=== PATIENT | female | born 1995 | race Caucasian/White ===

== ENCOUNTER 2017-10-11 11:28 | Emergency (ER) | payer OTHER ==
[~2017-10-11] VITALS: Ht 162.6 cm; Wt 80.3 kg
[~2017-10-11 11:28] MED LIST: QUASENSE 0.15-1 EACH PO; SEROQUEL200 M1 PO; ZOFRAN4 M2 PO
[2017-10-11 13:35] LABS: ABSOLUTE BASOPHIL COUNT 0 /CUMM (0.0-0.2); ABSOLUTE EOSINOPHIL COUNT 0.4 /CUMM (0.0-0.7); ABSOLUTE GRANULOCYTE CT 10.1 /CUMM (1.4-6.5); ABSOLUTE LYMPH COUNT 1.5 /CUMM (1.2-3.4); BASOPHIL % 0.4 % (0.0-2.0); GRANULOCYTE % 77.4 % (42.2-75.2); HEMATOCRIT 46.1 % (37-47); MEAN CORPUSCULAR HGB 33.1 PG (27.0-31.0); MEAN CORPUSCULAR HGB CONC 33.5 G/DL (33.0-37.0); MEAN CORPUSCULAR VOLUME 98.8 FL (81.0-99.0); MEAN PLATELET VOLUME 7.8 FL (7.4-10.4); PLATELET COUNT 336 /CUMM (130-400); RBC DISTRIBUTION WIDTH 13.4 % (11.5-14.5); RED BLOOD CELL CT 4.66 /CUMM (4.20-5.40); WHITE BLOOD CELL COUNT 13.1 /CUMM (4.8-10.8)
[2017-10-11 13:53] LABS: PT 11.4 SEC (9.4-12.5); PTT 35 SEC (25-37)
--- NOTE | 2017-10-11 14:19 | ED GENERAL ADULT ---
History of Present Illness General Chief Complaint: General Adult Stated Complaint: SWOLLEN GLANDS/NECK PAIN/RASH Source: patient, family Exam Limitations: no limitations Vital Signs & Intake/Output Vital Signs & Intake/Output Vital Signs Date Time Temp Pulse Resp B/P B/P Pulse O2 O2 Flow FiO2 Mean Ox Delivery Rate 10/11 1615 98.3 82 16 136/80 98 Room Air 10/11 1415 98.2 88 18 133/93 98 Room Air 10/11 1132 97.7 150 18 146/122 98 Room Air Allergies Coded Allergies: fluoxetine (From [employer]) (Intermediate, MANIC 10/11/17) Reconcile Medications Doxycycline Hyclate 100 MG CAPSULE 1 CAP PO BID NECK SWELLING Ibuprofen 800 MG TABLET 1 TAB PO TID PAIN Levonorgestrel-Ethin Estradiol (Quasense 0.15-0.03 MG Tablet) 1 EACH [id number] 1 TAB PO DAILY CONTROL (Reported) Ondansetron HCl (Zofran) 4 MG TABLET 1 TAB PO TID PRN NAUSEA Quetiapine Fumarate (Seroquel) 200 MG TABLET 1 TAB PO QPM MENTAL HEALTH/SLEEP (Reported) Triage Note: 22 YO FEMALE TO TRIAGE STATING "I THINK I HAVE MENINGITIS" STATES SHE STARTED VOMTIING BLOOD ON TUESDAY BUT THAT HAS RESOLVED. STATES STATES SHE HAS A RASH IN SPOTS ON HER BODY. STATES +SWOLLEN GLANDS, STATES +PAIN TO UPPER BACK. AFEBRILE. DENIES SORE THRAOT. Triage Nurses Notes Reviewed? yes Onset: Abrupt Duration: day(s): Timing: multiple episodes today LMP (ages 10-50): date (2 weeks ago) : No Patient currently breastfeeds: No HPI: 22 year old female presents to the ED with multiple complaints she states this occured on Tuesday when she had three episodes within an hour of bloody vomiting that starting as bright red and became dark. She continued to have vomiting throughout the weekend that was green. She states that the light and loud noises makes it worse while closing her eyes and cold compresses makes her feel better. She has been unable to eat or drink since her episodes of vomiting. She endorses nightsweats, chills, general pain, headache, fatigue, cough, and a rash that has spread from her chest to her neck. She denies fevers, sore throat, chest pain, runny nose, recent travel or use of oral contraceptive pills. She reports that primarily while she is here today is due to the fact that her neck feels swollen and painful. It starts up at her upper jawline and wraps around to the anterior aspect of her neck. She feels that it swollen. The rash began yesterday and has spread from her chest to arms. She denies any recent travel. The vomiting has since completely resolved. She denies any black stool or blood in her stool. She has no complaints of abdominal pain. Past History Travel History Traveled to [place] past 21 day No Medical History Any Pertinent Medical History? see below for history Neurological: NONE EENT: NONE Cardiovascular: NONE Respiratory: asthma Gastrointestinal: NONE Hepatic: NONE Renal: NONE Musculoskeletal: fibromyalgia Psychiatric: anxiety, bipolar disease, PTSD Endocrine: NONE Blood Disorders: NONE Cancer(s): NONE POLICY CHECKER/Reproductive: NONE Surgical History Surgical History: Psychosocial History What is your primary language Mexican Tobacco Use: Never used Family History Hx Contributory? No Review of Systems Review of Systems Constitutional: Reports: see HPI. EENTM: Reports: see HPI. Respiratory: Reports: see HPI. Cardiovascular: Reports: no symptoms. GI: Reports: no symptoms. Genitourinary: Reports: no symptoms. Musculoskeletal: Reports: see HPI. Skin: Reports: see HPI. Neurological/Psychological: Reports: no symptoms. Hematologic/Endocrine: Reports: no symptoms. Immunologic/Allergic: Reports: no symptoms. All Other Systems: Reviewed and Negative Physical Exam Physical Exam General Appearance: well developed/nourished, no apparent distress, alert, awake Head: atraumatic Eyes: Bilateral: normal appearance. Ears, Nose, Throat: normal pharynx Neck: lymphadenopathy (R), lymphadenopathy (L), ANTERIOR CERVICAL LYMPHADENOPATHY Respiratory: normal breath sounds, no respiratory distress Cardiovascular: regular rate/rhythm Gastrointestinal: soft, SOME MILD TENDERESS LLQ, NO GAURDING, NO REBOUND TEDNERNESS, NEGATIVE MCBURNEYS POINT Back: normal inspection Extremities: normal inspection, no edema Neurologic/Psych: awake, alert, oriented x 3 Skin: rash, Maculopapular rash on anterior aspect of chest and breasts, located on the upper extremities on the upper arm Core Measures ACS in differential dx? No CVA/TIA Diagnosis: No Sepsis Present: No Sepsis Focused Exam Completed? No Progress Differential Diagnoses I considered the following diagnoses in my evaluation of the patient: Mumps, viral syndrome, lymphoma, HIV, autoimmune disease, lymphadenitis, Plan of Care: Orders Procedure Date/time Status Add-on Test (ER Only) 10/11 1433 Active Add-on Test (ER Only) 10/11 1415 Active LITHIUM 10/11 1323 Complete URINE 10/11 131 Complete URINALYSIS 10/11 131 Complete TROPONIN LEVEL 10/11 131 Complete PARTIAL THROMBOPLASTIN TIME 10/11 131 Complete PROTHROMBIN TIME 10/11 131 Complete MONOSPOT TEST 10/11 131 Complete LACTIC ACID 10/11 131 Complete WESTERGREN SED RATE 10/11 131 Complete D-DIMER 10/11 131 Complete COMPREHENSIVE METABOLIC PANEL 10/11 131 Complete CBC WITHOUT DIFFERENTIAL 10/12 1311 Complete EKG 10/11 1133 Active Laboratory Tests 10/11/17 1612: Lactic Acid Cancelled 10/11/17 1330: Urinalysis LIGHT H, Urine Color ARABELLA, Urine Clarity HAZY H, Urine pH 6.0, Ur Specific [place] 1.025, Urine Protein 30 H, Urine Ketones >=80, Urine Nitrite NEG, Urine Bilirubin POS@ICTO H, Urine Urobilinogen 1.0, Ur Leukocyte Esterase NEG, Ur Microscopic SEDIMENT EXAMINED, Urine RBC 5-10 H, Urine WBC 5-10 H, Ur Epithelial Cells MANY H, Urine Bacteria MANY H, Hyaline Casts RARE H, Urine Mucus MOD H, Urine Hemoglobin TRACE-LYSED, Urine Glucose NEG, Urine Test NEGATIVE 10/11/17 1323: Anion Gap 19 H, Estimated GFR > 60, BUN/Creatinine Ratio 7.8, Glucose 89, Lactic Acid 0.8, Calcium 10.4 H, Total Bilirubin 0.8, AST 22, ALT 28, Alkaline Phosphatase 67, Troponin I < 0.01, Total Protein 8.0, Albumin 4.9, Globulin 3.1, Albumin/Globulin Ratio 1.6, PT 11.4, INR 1.05, APTT 35, D-Dimer High Sensitivty 232, CBC w Diff NO MAN DIFF REQ, RBC 4.66, MCV 98.8, MCH 33.1 H, MCHC 33.5, RDW 13.4, MPV 7.8, Gran % 77.4 H, Lymphocytes % 11.3 L, Monocytes % 7.9, Eosinophils % 3.0, Basophils % 0.4, Absolute Granulocytes 10.1 H, Absolute Lymphocytes 1.5, Absolute Monocytes 1.0 H, Absolute Eosinophils 0.4, Absolute Basophils 0, ESR Westergren 5, [place] 0.9 10/11/17 1312: Infectious Schuyler Titer NEGATIVE Diagnostic Imaging: Viewed by Me: Radiology Read. Discussed w/RAD: Radiology Read. Radiology Impression: PATIENT: CONCEPCIÓN BUSBY PRESENT AGE: 22 PATIENT ACCOUNT NO: [id number] : 93 LOCATION: [facility] ORDERING PHYSICIAN: Abhinav SPAULDING SERVICE DATE: 10/11/17 EXAM TYPE: RAD - XRY-CHEST XRAY, TWO VIEWS EXAMINATION: XR CHEST CLINICAL INFORMATION: Swollen neck glands, assess for any mediastinal lymphadenopathy COMPARISON: None TECHNIQUE: 2 views of the chest were obtained. FINDINGS: The lungs are clear with no focal consolidation. No evidence of pneumothorax, pulmonary edema, or pleural effusions. Cardiac size is within normal limits. No radiographic findings to suggest mediastinal lymphadenopathy. No acute osseous findings are seen. IMPRESSION: No findings to suggest mediastinal lymphadenopathy. No acute pulmonary findings. DICTATED BY: Elkin Parra MD DATE/TIME DICTATED:10/11/171450 MOTEL MAID:MISTI DATE/TIME TRANSCRIBED:10/11/171450 CONFIDENTIAL, DO NOT COPY WITHOUT APPROPRIATE AUTHORIZATION. <Electronically signed in Other Vendor System> SIGNED BY: Elkin Parra MD 10/11/171456 Initial ED EKG: normal sinus rhythm, rate (102), nonspecific ST T wave chg Departure Departure Disposition: HOME OR SELF CARE Condition: Stable Clinical Impression Primary Impression: Rash and nonspecific skin eruption Secondary Impressions: Submandibular lymphadenopathy, Viral syndrome Referrals: Ciarra Liriano MD Patient Has No Primary Care Dr (PCP/Family) Additional Instructions: Take doxycycline and ibuprofen as prescribed. Follow-up with primary care doctor. Return if any concerns worsening symptoms. Please go over all results of today's visit with your primary care doctor. Contact your primary care doctor to let them know you were here in the emergency room. There may be nonspecific findings which may not be related to your visit today here in the emergency room but may require further evaluation and chronic monitoring by your primary care doctor. If you had a laceration today the chance of foreign body always remains. You should follow-up with your primary care doctor for recheck in 3-5 days for a wound check. If you had an x-ray done there is a chance that a fracture could have been missed on initial read and you should follow-up with your primary care doctor for repeat x-rays if symptoms persist. If your blood pressure was elevated here in the emergency room please have rechecked by [place] primary care doctor within the next 48. If you were prescribed a narcotic here in the emergency room or any type of controlled substances you're not allowed to drive while taking this medication or operate any type of heavy machinery. Narcotics can make you feel lightheaded dizziness nausea and can cause constipation. You may need to pharmacy picking technician a stool softener. Thank you for choosing [facility] emergency room. Please return to the emergency room immediately if you have any other concerns worsening of symptoms. Departure Forms: Customer Survey General Discharge Information Prescriptions: Current Visit Scripts Doxycycline Hyclate 1 CAP PO BID #20 CAP Ibuprofen 1 TAB PO TID #30 TAB Comments 10/11/2017 5:21:43 PM Patient clinically looks well. Patient is in no apparent distress. Patient is nontoxic-appearing. Considered mumps as a possible diagnosis versus other viral syndrome. She appears well clinically. Etiology of symptoms unclear at this time. She was told to follow up closely with her PCP. Started on prophylactic doxycycline. Case discussed with Dr. Mo. No nuchal rigidity. Negative Brudzinski's SIGN. No suspicion for meningitis at this time. Follow-up with PCP provided. Return if any other concerns. She understands and agrees the plan of care. No acute abdomen on exam. Critical Care Note Critical Care Note Critical Care Time: non-applicable
[2017-10-11 14:41] LABS: LITHIUM 0.9 mmol/L (0.6-1.2)
--- NOTE | 2017-10-11 14:57 | RADIOLOGY REPORT ---
EXAMINATION: XR CHEST CLINICAL INFORMATION: Swollen neck glands, assess for any mediastinal lymphadenopathy COMPARISON: None TECHNIQUE: 2 views of the chest were obtained. FINDINGS: The lungs are clear with no focal consolidation. No evidence of pneumothorax, pulmonary edema, or pleural effusions. Cardiac size is within normal limits. No radiographic findings to suggest mediastinal lymphadenopathy. No acute osseous findings are seen. IMPRESSION: No findings to suggest mediastinal lymphadenopathy. No acute pulmonary findings.
[2017-10-11 16:15] VITALS: BP 136/80
[2017-10-11] MEDS ORDERED: IBUPROFEN800 M1 PO (16:35)
[2017-10-11] MEDS ORDERED: DOXYCYCLINE HY100 M2 PO (16:35)
== END 2017-10-11 17:09 ==
LOC: ERH 11:28
PROVIDERS: Physician Assistant Medical
DX: R21 Rash and other nonspecific skin eruption (principal); R59.1 Generalized enlarged lymph nodes; B34.9 Viral infection, unspecified
CPT/HCPCS: 71046; 81001; 81025; 93005; 93010